=== PATIENT | female | born 1985 ===

== ENCOUNTER 2016-04-05 15:58 | Emergency (ER) | payer BC ==
[2016-04-05 16:08] VITALS: BP 106/61
--- NOTE | 2016-04-05 21:55 | UC ---
Throat Pain/Nasal Esteban HPI - HPI Summary HPI Summary: 10 DAYS OF SINUS/NASAL CONGESTION, PRESSURE/PAIN. NO DRAINAGE. 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 NO FEVER. MILD OCC SINUS LOPEZ. - History of Current Complaint Chief Complaint: UCGeneralIllness Stated Complaint: COUGH,CONGESTION Time Seen by Provider: 04/05/16 16:17 Hx Obtained From: Patient ?: No Onset/Duration: Gradual Onset, Lasting Days - 10, Still Present Severity: Moderate Pain Intensity: 0 Pain Scale Used: 0-10 Numeric Cough: Productive Associated Signs & Symptoms: Positive: Hoarseness, Sinus Discomfort. Negative: Dysphagia, Drooling, Wheezing, Fever, Vomiting, Rash - Allergies/Home Medications Allergies/Adverse Reactions: Allergies Allergy/AdvReac Type Severity Reaction Status Date / Time No Known Allergies Allergy Verified 04/05/16 16:08 Home Medications: Home Medications Oxymetazoline 0.05% NASAL SPR* [Afrin 0.05% NASAL SPRAY*] 1 spray NASAL Q12H 09/14 [History Confirmed 04/05/16] Pseudoephedrine HCL ER TAB* [Sudafed 12 Hour*] 120 mg PO BID 04/05/16 [History Confirmed 04/05/16] PMH/Surg Hx/FS Hx/Imm Hx Previously Healthy: Yes Respiratory History Of: Reports: Asthma - exercise induced - Surgical History Surgical History: Yes Surgery Procedure, Year, and Place: Lasix surgery - Family History Known Family History: Negative: Cardiac Disease, Hypertension, Diabetes - Social History Occupation: Employed Full-time Lives: With Family Alcohol Use: Rare Substance Use Type: None Smoking Status (MU): Never Smoked Tobacco Review of Systems Constitutional: Negative Skin: Negative Eyes: Negative ENT: Other - SEE HPI Respiratory: Cough Cardiovascular: Negative Gastrointestinal: Negative Genitourinary: Negative Motor: Negative Neurovascular: Negative Musculoskeletal: Negative Neurological: Headache - OCC SINUS Psychological: Negative All Other Systems Reviewed And Are Negative: Yes Physical Exam Triage Information Reviewed: Yes Appearance: Well-Appearing, No Pain Distress, Well-Nourished Vital Signs: Initial Vital Signs Temp 98.0 F 04/05/16 16:04 Pulse 78 04/05/16 16:04 Resp 16 04/05/16 16:04 BP 106/61 04/05/16 16:04 Pulse Ox 100 04/05/16 16:04 Vital Signs Reviewed: Yes Eyes: Positive: Conjunctiva Clear. Negative: Discharge ENT: Positive: Hearing grossly normal, Pharynx normal, Nasal congestion, TMs normal, Other: - SINUS TENDERNESS. Negative: Tonsillar swelling, Tonsillar exudate, Trismus, Muffled/hoarse voice Dental Exam: Normal Neck: Positive: Supple, Nontender, No Lymphadenopathy Respiratory: Positive: Normal breath sounds, No respiratory distress, No accessory muscle use, Respiratory distress Cardiovascular: Positive: RRR, No Murmur Musculoskeletal Exam: Normal Neurological: Positive: Alert, Muscle Tone Normal Psychological: Positive: Age Appropriate Behavior Skin Exam: Normal Throat Pain/Nasal Course/Dx - Differential Dx/Diagnosis Differential Diagnosis/HQI/PQRI: Sinusitis, URI Provider Diagnoses: SINUSTIS Discharge - Discharge Plan Condition: Stable Disposition: HOME Prescriptions: Azithromycin TAB* [Zithromax TAB (Z-XAVIER)*] 0 mg PO .SEE INSTRUCTIONS #6 tab guaiFENesin ER TAB [Mucinex*] 600 mg PO BID PRN #1 box PRN Reason: Cough Patient Education Materials: Sinusitis (ED) Referrals: Non Staff,Doctor [Primary Care Provider] - Additional Instructions: TRY USING THE NETTI POT IN THE MORNINGS DISCUSSED. YOU MUST ALWAYS USE CLEAN WATER. REMEMBER, POSTURE IS AN IMPORTANT FACTOR IN SINUS DRAINAGE. MOVE YOUR NECK, BREATHE. EXPECTORANT MEDICATION: An expectorant medicine has been prescribed. This type of drug makes mucous thinner, helping the sinuses, nose, and bronchial tubes to remain free of pus and mucous. Expectorants make a cough less severe and more comfortable, and help infected sinuses drain. In general, antihistamines defeat the purpose of the expectorant by making mucous thicker. They should be avoided unless specifically recommended by your physician. ANTIBIOTICS ARE NOT CURRENTLY INDICATED FOR YOUR CONDITION. HOWEVER IF YOUR SYMPTOMS WORSEN OR PERSIST FOR MORE THAN 3-5 DAYS, YOU CAN START THE FOLLOWING ANTIBIOTIC: AZITHROMYCIN: Azithromycin (Zithromax) is a broad spectrum antibiotic in the same class as erythromycin. It can treat a variety of bacterial infections, but is most frequently used for respiratory infections. Azithromycin is extremely long-lasting. It accumulates in body tissues and continues to kill bacteria for many days. In order to improve absorption, Azithromycin should be taken at least one hour before or two hours after a meal. It does not have the same strong tendency to upset the stomach as erythromycin and is usually very well tolerated. Patients who have had a rash or other true allergic reactions to erythromycin should not take this medication. Call if you develop gastrointestinal distress, severe diarrhea, rash, hives, itching, or shortness of breath. ANY TIME YOU TAKE AN ANTIBIOTIC, IT IS IMPORTANT TO REPLENISH THE BODY'S BALANCE OF "GOOD" BACTERIA BY EATING HIGH QUALITY CULTURED FOOD SUCH YOGURT, SAURKRAUT OR ANA CHI AND/OR TAKING A PROBIOTIC SUPPLEMENT. FOLLOW-UP CARE: You should establish with a private physician for follow-up care. If you are unable to get a timely appointment, or if you are worsening, call us or return for re-evaluation. An additional resource available to assist in finding the appropriate physician for your health care needs is the [facility]erral [facility]. You may contact them by calling [phone].
== END 2016-04-05 17:15 | disposition home or self-care (01) ==
LOC: UCCORT 15:58
DX: J32.9 Chronic sinusitis, unspecified (principal); J45.909 Unspecified asthma, uncomplicated
CPT/HCPCS: 99202; G0463

== ENCOUNTER 2017-06-10 15:56 | Emergency (ER) | payer BC ==
[2017-06-10 16:40] VITALS: BP 128/77
--- NOTE | 2017-06-10 17:20 | UC ---
Hand/Wrist HPI - HPI Summary HPI Summary: pt c/o difficulty with straightening her R 4th finger for past week. she also notes a bump in her palm along that finger as well. 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 no fever, red oe swelling. - History Of Current Complaint Hx Obtained From: Patient Hx Last Menstrual Period: unkown ?: No Onset/Duration: Gradual Onset Pain Intensity: 5 Character Of Pain: Stiffness Aggravating Factor(s): Flexion Alleviating Factor(s): Nothing Associated Signs And Symptoms: Negative: Swelling, Redness, Weakness, Numbness/ Tingling <Leticia Patterson - Last Filed: 06/10/17 17:21> <Alana Foster - Last Filed: 06/10/17 19:07> - History Of Current Complaint Chief Complaint: UCUpperExtremity Stated Complaint: RIGHT HAND COMPLAINT Time Seen by Provider: 06/10/17 17:04 - Allergies/Home Medications Allergies/Adverse Reactions: Allergies Allergy/AdvReac Type Severity Reaction Status Date / Time No Known Allergies Allergy Verified 06/10/17 16:36 Home Medications: Home Medications Oral Control 1 tab PO DAILY 06/10/17 [History Confirmed 06/10/17] PMH/Surg Hx/FS Hx/Imm Hx Previously Healthy: Yes - Surgical History Surgical History: Yes Surgery Procedure, Year, and Place: Lasix surgery - Family History Known Family History: Negative: Cardiac Disease, Hypertension, Diabetes - Social History Occupation: Employed Full-time Lives: With Family Alcohol Use: Rare Substance Use Type: None Smoking Status (MU): Never Smoked Tobacco - Immunization History Vaccination Up to Date: Yes <Leticia Patterson - Last Filed: 06/10/17 17:21> Review of Systems Neurovascular: Other - 4th finger hard to straightenR Is Patient Immunocompromised?: No All Other Systems Reviewed And Are Negative: Yes <Leticia Patterson - Last Filed: 06/10/17 17:21> Physical Exam Triage Information Reviewed: Yes Appearance: Well-Appearing Vital Signs: Initial Vital Signs Temp 98 F 06/10/17 16:33 Pulse 60 06/10/17 16:33 Resp 16 06/10/17 16:33 BP 128/77 06/10/17 16:33 Pulse Ox 99 06/10/17 16:33 Eye Exam: Normal ENT: Positive: Normal ENT inspection Neck: Positive: Supple Respiratory: Positive: Lungs clear Cardiovascular: Positive: RRR, No Murmur Abdomen Description: Positive: Nontender, No Organomegaly, Soft Bowel Sounds: Positive: Present Musculoskeletal: Positive: Other: - R hand: 4th digit in mild flexion otherwise no gross deformity, swelling or discoloration. Pt is able to fully flex/extend all digits with effort. Small area of swelling over 4th flexor tendon on palmar surface. Hand has no erythema. s/v/m is intact. Neurological: Positive: Alert Psychological: Positive: Age Appropriate Behavior Skin Exam: Normal <Leticia Patterson - Last Filed: 06/10/17 17:21> Vital Signs: Initial Vital Signs Temp 98 F 06/10/17 16:33 Pulse 60 06/10/17 16:33 Resp 16 06/10/17 16:33 BP 128/77 06/10/17 16:33 Pulse Ox 99 06/10/17 16:33 <Alana Foster - Last Filed: 06/10/17 19:07> Procedures - Procedure Summary Procedure Summary: volar aluminum foam splint to R 4th finger with mild flexion by myself. gross s/ v intact after. <Leticia Patterson - Last Filed: 06/10/17 17:21> Hand/Wrist Course/Dx - Course Course Of Treatment: no concern for infection, fx or compartment syndrom. c/w trigger finger. will tx volar splint-flexed, nsaid and ortho f/u. - Differential Dx/Diagnosis Provider Diagnoses: trigger finger R 4th digit <Leticia Patterson - Last Filed: 06/10/17 17:21> Discharge <Leticia Patterson - Last Filed: 06/10/17 17:21> <Alana Foster - Last Filed: 06/10/17 19:07> - Discharge Plan Condition: Stable Disposition: HOME Prescriptions: Naproxen [Naprosyn] 500 mg PO BID 5 Days #10 tablet Patient Education Materials: Trigger Finger (ED) Referrals: Alicia Jaimes MD [Primary Care Provider] - If Needed Natalio Verdugo MD [Medical Doctor] - 3 Days Additional Instructions: splint until cleared Attestation Statement User Type: Provider - I was available for consult. This patient was seen by the FREDERICK. The patient was not presented to, seen by, or examined by me. Nathanael <Alana Foster - Last Filed: 06/10/17 19:07>
== END 2017-06-10 17:28 | disposition home or self-care (01) ==
LOC: UCCORT 15:56
DX: M65.341 Trigger finger, right ring finger (principal)
CPT/HCPCS: 99212; G0463